=== PATIENT | female | born 1950 | race Asian ===

== ENCOUNTER 2021-06-23 00:28 | Emergency (ER) | payer OTHER ==
[~2021-06-23] VITALS: Ht 160 cm; Wt 54.5 kg
[2021-06-23] MEDS ORDERED: ONDANSETRON HCL 4 MG/2 ML VIAL IVP PRN (01:15)
[2021-06-23] MEDS ORDERED: DiphenhydrAMINE HCL 50 MG/ML VIAL IVP PRN (01:15)
[2021-06-23] MEDS: MORPHINE SULFATE 100 MG/NS/PF 100 ML IV PRN (01:57)
[2021-06-23 02:58] VITALS: BP 44/20
== END 2021-06-23 06:46 ==
LOC: EDUNIT# 00:28 → EMS 00:28
DX: I46.9 Cardiac arrest, cause unspecified (principal); I10 Essential (primary) hypertension; C34.90 Malignant neoplasm of unspecified part of unspecified bronchus or lung
CPT/HCPCS: 93005; 96365; 96366; 99291; J2270; 92950